=== PATIENT | female | born 1975 | race American Indian/Alaskan Native ===

== ENCOUNTER 2018-10-04 16:02 | Outpatient (CLI) | payer MEDICAID | END 2018-10-04 16:03 | disposition home or self-care (01) | LOC: C.USIC 16:02 ==

== ENCOUNTER 2018-11-15 08:28 | Day surgery (SDC) | payer MEDICAID ==
--- NOTE | 2018-11-15 10:23 | CP.SDSHP ---
Same Day Surgery H & P - History Proposed Procedure: US guided FNA of right and left thyroid nodules Pre-Op Diagnosis: thyroid nodules - Allergies Allergies: Allergies No Known Allergies Allergy (Unverified 12/29/15 16:55) - Physical Exam Mental Status: Alert & Oriented x3 - Impression Impression: Pt with bilateral thyroid nodules, 2.5 cm right and 2 cm left. Plan US guided FNA of right and left thyroid nodules. Informed consent obtained. Pt. Evaluated Today:Candidate for Anesthesia & Procedure: No - Date & Time Date: 11/15/18 Time: 10:00 Short Stay Discharge - Short Stay Discharge Admitting Diagnosis/Reason for Visit: DX: THYROID NODULE Disposition: HOME/ ROUTINE
--- NOTE | 2018-11-15 10:25 | PCM.SURG1 ---
Surgeon's Initial Post Op Note - Surgeon's Notes Surgeon: Adam Marlow MD Solids Control Technician: NONE Type of Anesthesia: Local Pre-Operative Diagnosis: Right and left thyroid nodules Operative Findings: US showed a 2.5 cm mixed solid and cystic right and a 2 cm solid left thyroid nodule Post-Operative Diagnosis: Right and left thyroid nodules Operation Performed: US guided FNA Specimen/Specimens Removed: 25 g FNA x 5 passes per nodule Estimated Blood Loss: EBL {In ML}: 1 Blood Products Given: N/A Drains Used: No Drains Post-Op Condition: Good Date of Surgery/Procedure: 11/15/18 Time of Surgery/Procedure: 10:25
--- NOTE | 2018-11-17 11:38 | US ---
PROCEDURE: Date of Procedure: 11/15/2018 PROCEDURE: 1. Ultrasound guided FNA of left thyroid nodule, CPT 89207 2. Ultrasound guided FNA of RIGHT thyroid nodule, 3. Ultrasound guidance for FNA, [id number] Medications: 3cc 1% Lidocaine HISTORY: Enlarged thyroid nodules. TECHNIQUE: Following informed consent and procedure time-out, a limited ultrasound patient's neck confirmed the presence of a 1.8 cm complex solid left thyroid nodule. Also present is a complex mixed solid and cystic right thyroid nodule measuring 2.5 cm. After the patient's neck was prepped and draped in the usual sterile fashion, the skin was anesthetized with 1% lidocaine. Ultrasound-guided fine needle aspiration was then performed of the dominant left thyroid nodule. A total of 5 passes were made into the nodule with 25 gauge needle under ultrasound guidance. The FNA specimen was sent for routine pathology and genetics. Ultrasound guided FNA was then performed of the dominant right thyroid nodule. Again 5passes were made into the nodule with 25 gauge needle. The FNA specimen was sent for routine pathology and genetics. Post biopsy ultrasound showed no hematoma. IMPRESSION: Ultrasound-guided FNA of the dominant right and left thyroid nodules.
== END 2018-11-15 10:20 | disposition home or self-care (01) ==
LOC: C.SPRAD 08:28
PROVIDERS: ATTEND Radiology Vascular & Interventional Radiology
DX: E04.2 Nontoxic multinodular goiter (principal)